=== PATIENT | female | born 1990 | race Hispanic/Latino ===

== ENCOUNTER 2022-10-05 10:57 | Emergency (ER) | payer OTHER ==
[2022-10-05] MEDS ORDERED: HYDROcodone/Acetaminophen 10/325 mg Tablet ONE (11:53)
[2022-10-05] MEDS ORDERED: HYDROcodone/Acetaminophen 5/325 mg Tablet ONE (11:55)
[2022-10-05] MEDS ORDERED: Lidocaine 1% (PF) 30 ML VIAL ONE (13:36)
== END 2022-10-05 13:58 | disposition home or self-care (01) ==
LOC: CSHERS 10:57
DX: L02.411 Cutaneous abscess of right axilla (principal)
CPT/HCPCS: 10060; J2001

== ENCOUNTER 2022-10-07 10:58 | Emergency (ER) | payer OTHER ==
[2022-10-07] MEDS ORDERED: Ondansetron ODT 4 MG TAB ONE (11:52)
[2022-10-07] MEDS ORDERED: Lidocaine 1% (PF) 30 ML VIAL ONE (11:53)
[2022-10-07] MEDS ORDERED: Ketorolac Tromethamine 30 MG/ML VIAL ONE (11:53)
[2022-10-07] MEDS ORDERED: Acetaminophen/Codeine 30-300mg Tablet ONE (11:56)
== END 2022-10-07 12:51 | disposition home or self-care (01) ==
LOC: CSHERS 10:58
DX: L02.411 Cutaneous abscess of right axilla (principal)
CPT/HCPCS: 96372; 99283; J1885; J2001; Q0162

== ENCOUNTER 2023-05-18 10:52 | Emergency (ER) | payer OTHER ==
[2023-05-18] MEDS ORDERED: Ketorolac Tromethamine 30 MG/ML VIAL ONE (11:39)
== END 2023-05-18 14:04 | disposition home or self-care (01) ==
LOC: CSHERS 10:52
DX: S01.91XA Laceration without foreign body of unspecified part of head, initial encounter (principal); J45.909 Unspecified asthma, uncomplicated; W19.XXXA Unspecified fall, initial encounter
CPT/HCPCS: 70450; 72072; 72100; 72125; 96374; J1885

== ENCOUNTER 2023-08-20 16:28 | Emergency (ER) | payer BC, SELFPAY ==
[2023-08-20 17:23] LABS: SARS-CoV-2 NAA Rapid Test Not Detected (NotDetected)
[2023-08-20] MEDS ORDERED: Ipratropium/Albuterol 3 ML NEB ONE (17:27)
== END 2023-08-20 17:45 | disposition home or self-care (01) ==
LOC: CSHERS 16:28
DX: J18.9 Pneumonia, unspecified organism (principal); J04.0 Acute laryngitis; Z20.822 Contact with and (suspected) exposure to COVID-19
CPT/HCPCS: 71045; J7620